=== PATIENT | female | born 1995 | race Caucasian/White ===

== ENCOUNTER 2016-10-04 13:23 | Emergency (ER) | payer OTHER ==
[~2016-10-04] VITALS: Ht 137.2 cm; Wt 64.0 kg
[2016-10-04 13:27] VITALS: Ht 137.2 cm; Wt 64.0 kg
[2016-10-04 16:32] LABS: ADD SCAN DIFF NO
[2016-10-04 16:35] LABS: BASOPHILS % 0.6 % (0.0-2.0); EOSINOPHILS % 0.6 % (0.0-7.0); HEMATOCRIT 39.4 % (37.0-47.0); LYMPHOCYTES # 2.7 10^3/ul (0.8-2.9); LYMPHOCYTES % 50.6 % (18.0-55.0); MEAN CORPUSCULAR HEMOGLOBIN 34.5 pg (29.0-33.0); MEAN CORPUSCULAR VOLUME 104.5 fl (72.0-104.0); MEAN PLATELET VOLUME 9.5 fl (7.4-10.4); MONOCYTE # 0.5 10^3/ul (0.3-0.9); PLATELET COUNT 222 10^3/UL (140-415); RED BLOOD COUNT 3.77 10^6/ul (4.20-5.40); RED CELL DISTRIBUTION WIDTH 11.9 % (11.5-14.5); WHITE BLOOD COUNT 5.3 10^3/ul (4.8-10.8)
--- NOTE | 2016-10-04 16:43 | RADRPT ---
PROCEDURE: XR Chest. CLINICAL INDICATION: Abdominal pain TECHNIQUE: Chest AP portable. COMPARISON: No comparison available. FINDINGS: Sternotomy. The mediastinal structures are unremarkable. The heart is normal in size and configuration. The pu lmonary vascularity is normal. The lung jackson are unremarkable. No consolidation is identified. The pleural spaces are unremarkable. The axial skeleton is unremarkable. IMPRESSION: No active intrathoracic disease. RPTAT: HGDB .Jose Alejandro Fernando MD, MD Date Time Electronically viewed and signed by .Jose Alejandro Fernando MD, on 10/04/2016 16:42 .B/
[2016-10-04 16:49] LABS: POTASSIUM 4.2 mmol/L (3.5-5.1)
[2016-10-04 16:51] LABS: ALBUMIN/GLOBULIN RATIO 0.97; BILIRUBIN,INDIRECT 0.2 mg/dl (0-1.1); BILIRUBIN,TOTAL 0.2 mg/dl (0.2-1.3); CREATININE 0.91 mg/dl (0.44-1.00); TOTAL PROTEIN 8.1 g/dl (6.1-8.1)
[2016-10-04 16:52] LABS: CALCIUM 9.1 mg/dl (8.4-10.2); INR 0.99; PARTIAL THROMBOPLASTIN TIME 23.8 Sec (25.0-35.0); PROTIME 13.1 Sec (12.2-14.2)
[2016-10-04 17:03] LABS: ADD UMIC NO; URINE BILIRUBIN (Dip) NEGATIVE (NEGATIVE); URINE BLOOD (Dip) NEGATIVE (NEGATIVE); URINE COLOR LT. YELLOW (YELLOW); URINE GLUCOSE (Dip) NEGATIVE (NEGATIVE); URINE KETONES (Dip) NEGATIVE (NEGATIVE); URINE LEUKOCYTE ESTERASE (Dip) NEGATIVE (NEGATIVE); URINE NITRITE (Dip) NEGATIVE (NEGATIVE); URINE TOTAL PROTEIN (Dip) NEGATIVE (NEGATIVE); URINE UROBILINOGEN (Dip) 1.0 E.U./dL (0.1-1.0)
[2016-10-04] MEDS ORDERED: ACET325T33 PO (17:09)
--- NOTE | 2016-10-04 17:29 | ERD ---
ER Documentation Chief Complaint Date/Time DATE: 10/04/16 TIME: 17:22 Chief Complaint PER MOM, PT HAS PAIN, UNABLE TO SLEEP. HX OF DOWN'S, NON-VERBAL HPI This patient is a 20-year-old female who has history of Down syndrome and is nonverbal presenting to the emergency department by her mother for "pain". The patient's mother states the patient has been having pain but she is unable to determine where it is coming from since patient is nonverbal. The patient denies cough, fevers, chills, inconsolable crying, or other symptoms. The mother has given no medications at home for relief of symptoms. ROS All systems reviewed and are negative except as per history of present illness. Medications Home Meds Active Scripts Acetaminophen* (Tylenol*) 325 Mg Tablet, 2 TAB PO Q6 Y for PAIN AND OR ELEVATED TEMP, #20 TAB Prov:ANNABELLE DANIEL PA-C 10/04/16 Allergies Allergies: Coded Allergies: No Known Allergy (Unverified , 10/04/16) PMhx/Soc Medical and Surgical Hx: pt denies Medical Hx, pt denies Surgical Hx History of Surgery: No Anesthesia Reaction: No Hx Neurological Disorder: No Hx Respiratory Disorders: No Hx Cardiac Disorders: No Hx Psychiatric Problems: No Hx Miscellaneous Medical Probl: No Hx Alcohol Use: No Hx Substance Use: No Hx Tobacco Use: No Smoking Status: Never smoker FmHx Noncontributory for chief complaint. Physical Exam Vitals Vital Signs Date Time Temp Pulse Resp B/P Pulse Ox O2 Delivery O2 Flow Rate FiO2 10/04/16 13:27 77 18 92/50 98 Physical Exam Const: The patient is nonverbal. The patient has wide set eyes and enlarged tongue consistent with Down syndrome. Head: Atraumatic Eyes: Normal Conjunctiva ENT: Normal External Ears, Nose and Mouth. Unable to examine the throat or the ears due to the patient being uncooperative. Neck: Full range of motion..~ No meningismus. Resp: Clear to auscultation bilaterally Cardio: Regular rate and rhythm, no murmurs Abd: Soft, non tender, non distended. Normal bowel sounds Skin: No petechiae or rashes Back: No midline or flank tenderness Ext: No cyanosis, or edema Neur: Awake and alert Psych: Normal Mood and Affect Result Diagram: 10/04/16 1625 10/04/16 1625 Results 24 hrs Laboratory Tests Test 10/04/16 16:25 10/04/16 16:37 White Blood Count 5.310^3/ul Red Blood Count 3.7710^6/ul Hemoglobin 13.0g/dl Hematocrit 39.4% Mean Corpuscular Volume 104.5fl Mean Corpuscular Hemoglobin 34.5pg Mean Corpuscular Hemoglobin Concent 33.0g/dl Red Cell Distribution Width 11.9% Platelet Count 32640^3/UL Mean Platelet Volume 9.5fl Neutrophils % 38.0% Lymphocytes % 50.6% Monocytes % 10.0% Eosinophils % 0.6% Basophils % 0.6% Nucleated Red Blood Cells % 0.0/100WBC Neutrophils # 2.010^3/ul Lymphocytes # 2.710^3/ul Monocytes # 0.510^3/ul Eosinophils # 0.010^3/ul Basophils # 0.010^3/ul Nucleated Red Blood Cells # 0.010^3/ul Prothrombin Time 13.1Sec Prothrombin Time Ratio 1.0 INR International Normalized Ratio 0.99 Activated Partial Thromboplast Time 23.8Sec Sodium Level 147mmol/L Potassium Level 4.2mmol/L Chloride Level 108mmol/L Carbon Dioxide Level 27mmol/L Anion Gap 16 Blood Urea Nitrogen 19mg/dl Creatinine 0.91mg/dl Glucose Level 123mg/dl Calcium Level 9.1mg/dl Total Bilirubin 0.2mg/dl Direct Bilirubin 0.00mg/dl Indirect Bilirubin 0.2mg/dl Aspartate Amino Transf (AST/SGOT) 21IU/L Alanine Aminotransferase (ALT/SGPT) 25IU/L Alkaline Phosphatase 83IU/L Total Protein 8.1g/dl Albumin 4.0g/dl Globulin 4.10g/dl Albumin/Globulin Ratio 0.97 Lipase 70U/L Urine Color LT. YELLOW Urine Clarity CLEAR Urine pH 7.0 Urine Specific [place] 1.015 Urine Ketones NEGATIVE Urine Nitrite NEGATIVE Urine Bilirubin NEGATIVE Urine Urobilinogen 1.0 E.U./dL Urine Leukocyte Esterase NEGATIVE Urine Hemoglobin NEGATIVE Urine Glucose NEGATIVE% Urine Total Protein NEGATIVE Procedures/MDM EMERGENCY DEPARTMENT COURSE / MEDICAL DECISION MAKING: This is a 20-year-old female who comes to the emergency room secondary to complaints of "pain". Lab results reviewed and showed no significant acute abnormalities. Urinalysis showed no signs of infection or proteinuria. Radiology: PROCEDURE: XR Chest. CLINICAL INDICATION: Abdominal pain TECHNIQUE: Chest AP portable. COMPARISON: No comparison available. FINDINGS: Sternotomy. The mediastinal structures are unremarkable. The heart is normal in size and configuration. The pulmonary vascularity is normal. The lung jackson are unremarkable. No consolidation is identified. The pleural spaces are unremarkable. The axial skeleton is unremarkable. IMPRESSION: No active intrathoracic disease. RPTAT: HGDB .Jose Alejandro Fernando MD, MD Date Time Electronically viewed and signed by .Jose Alejandro Fernando MD, on 10/04/2016 16:42 .B/ CC: ANNABELLE DANIEL PA-C The primary diagnosis is pain of unclear etiology secondary to the patient being nonverbal. I have low suspicion for bronchitis, pneumonia, acute coronary syndrome, acute abdomen, or other emergent conditions at this time. Unable to rule out all conditions secondary to the patient being nonverbal and unable to complete a comprehensive clinical examination. Unable to complete an EKG secondary to the patient being uncooperative. The mother states the patient does have an appointment with her welding machine operator electroslag tomorrow for further workup and treatment. I discussed this case with Dr. Pepe Ibarra, attending ED physician who agreed with ED course. Nursing staff attempted multiple times to obtain a tympanic temperature but the patient was uncooperative and the mother stated "the patient does not have a temperature". Discharge: I have discussed the lab results and diagnostic findings with the patient and answered any questions or concerns. The patient was discharged with a prescription for Tylenol. The patient was advised to followup with their PMD in 1-2 days and to return to the Emergency Department if there are any new or worsening symptoms. The patient understood and agreed with the diagnosis, treatment and plan. The patient is stable for discharge at this time. Departure Diagnosis: Primary Impression: Pain Condition: Fair Referrals: [facility] YOU HAVE RECEIVED A MEDICAL SCREENING EXAM AND THE RESULTS INDICATE THAT YOU DO NOT HAVE A CONDITION THAT REQUIRES URGENT TREATMENT IN THE EMERGENCY DEPARTMENT. FURTHER EVALUATION AND TREATMENT OF YOUR CONDITION CAN WAIT UNTIL YOU ARE SEEN IN YOUR DOCTORS OFFICE WITHIN THE NEXT 1-2 DAYS. IT IS YOUR RESPONSIBILITY TO MAKE AN APPOINTMENT FOR FOLOW-UP CARE. IF YOU HAVE A PRIMARY DOCTOR --you should call your primary doctor and schedule an appointment IF YOU DO NOT HAVE A PRIMARY DOCTOR YOU CAN CALL OUR PHYSICIAN REFERRAL HOTLINE AT IF YOU CAN NOT AFFORD TO SEE A PHYSICIAN YOU CAN CHOSE FROM THE FOLLOWING REPLACED BY [facility] [address] [facility] [address] [facility] [address] [facility] [address] [facility] [address] [facility] [facility]. [address] Additional Instructions: Follow-up with your primary care physician within 1 week. Return to the emergency department immediately should you have any new or worsening symptoms, uncontrolled fevers, or other unexplained symptoms. Take all medications as directed. ANNABELLE DANIEL PA-C Oct 04, 2016 17:29
== END 2016-10-04 17:30 | disposition home or self-care (01) ==
LOC: FTE 13:23
DX: R52 Pain, unspecified (principal)
CPT/HCPCS: 71010; 80053; 81003; 83690; 85025; 85610; 85730; Z7502; 99284